=== PATIENT | male | born 1990 | race Caucasian/White ===

== ENCOUNTER 2019-12-29 18:51 | Emergency (ER) | payer BC, MEDICAID ==
[~2019-12-29] VITALS: Ht 167.6 cm; Wt 99.8 kg
[2019-12-29 18:56] VITALS: BP 144/78
--- NOTE | 2019-12-29 19:05 | NUR ---
AMB TO 8
--- NOTE | 2019-12-29 19:38 | NUR ---
PT TO CT VIA WHEELCHAIR
--- NOTE | 2019-12-29 19:45 | NUR ---
LAB AT BEDSIDE
--- NOTE | 2019-12-29 19:48 | NUR ---
PT WAS DX WITH APPENDICITIS 2-3 YRS AGO AND OPTED NOT TO HAVE SURGERY, JUST TOOK ANTIBIOTICS. HE SAYS ITS HURTING IN THE SAME AREA. ACTUALLY STATES "DISCOMFORT" NOT PAIN BUT RATES IT 7/10. AREA TENDER UPON PALPATION. AFEBRILE, NO N/V/D. PT SITTING AT BEDSIDE NKA NO HX
[2019-12-29 19:57] LABS: BASOPHILS # (AUTO) 0.1 K/uL (0.00-0.22); BASOPHILS % (AUTO) 0.6 % (0.0-2.0); EOSINOPHILS # (AUTO) 0.1 K/uL (0-0.4); EOSINOPHILS % (AUTO) 0.6 % (0.0-4.0); HEMATOCRIT 45.5 % (36-52); HEMOGLOBIN 15.5 g/dL (12.0-18.0); LYMPHOCYTES % (AUTO) 26.7 % (20.5-51.1); MEAN CORPUSCULAR HEMOGLOBIN 31 pg (27-31); MEAN CORPUSCULAR HGB CONC 34 g/dL (33-37); MEAN CORPUSCULAR VOLUME 90.9 fL (80-94); MONOCYTES % (AUTO) 8.8 % (1.7-9.3); NEUTROPHILS # (AUTO) 7.3 K/uL (1.8-7.7); NEUTROPHILS % (AUTO) 63.3 % (42.2-75.2); PLATELET COUNT (AUTO) 231 K/uL (140-450); RED BLOOD CELL COUNT(AUTO) 5.01 MIL/uL (4.20-6.10); RED CELL DISTRIBUTION WIDTH 13.2 % (11.6-13.7); WHITE BLOOD COUNT (AUTO) 11.4 K/uL (4.8-10.8)
[2019-12-29 20:23] LABS: ALBUMIN 4.5 g/dL (3.4-5.0); ANION GAP 15.8 (8-16); CARBON DIOXIDE 25.7 mmol/L (21-32); CREATININE 1.5 mg/dL (0.6-1.3); POTASSIUM 4.5 mmol/L (3.5-5.1); TOTAL BILIRUBIN 1.1 mg/dL (0.0-1.0)
[2019-12-29 20:51] VITALS: BP 144/78
--- NOTE | 2019-12-29 20:51 | NUR ---
Patient discharged with v/s stable. Written and verbal after care instructions given and explained. Patient verbalized understanding. Ambulatory with steady gait. All questions addressed prior to discharge. Advised to follow up with PMD.
== END 2019-12-29 20:51 | disposition home or self-care (01) ==
LOC: MED 18:51
DX: R10.31 Right lower quadrant pain (principal); J45.909 Unspecified asthma, uncomplicated
CPT/HCPCS: 36415; 80053; 85025; 99284

== ENCOUNTER 2021-09-26 03:25 | Emergency (ER) | payer SELFPAY ==
[~2021-09-26] VITALS: Ht 167.6 cm; Wt 95.3 kg
[2021-09-26 03:30] VITALS: BP 119/78
--- NOTE | 2021-09-26 03:30 | NUR ---
TO BED AMBULATORY
--- NOTE | 2021-09-26 03:32 | NUR ---
Mary Kate barba in [facility] - 09/26/21 at 0332 by MARY PT OLIMPIA VIEYRA. TAKEN TO BED 9
--- NOTE | 2021-09-26 04:24 | NUR ---
31 Y/O MALE BIBS FROM HOME, C/O CP X2 DAYS. PT STATES HE HAS CONSISTENT 10/10 PRESSURE ON HIS LEFT CHEST X 2 DAYS THAT MAKES HIS LEFT ARM TINGLE. CMS INTACT. DENIES V/D, COUGH, FEVER, OR TINITUS. +NAUSEA, +SOB. UNLABORED BREATHING; AMBULATORY; A/OX4, GCS-15. PT SEATED IN BED WITH HOB RAISED, BED IN LOWEST POSITION, RAILS UP X2. HX: ANX NKDA
[2021-09-26] MEDS ORDERED: KETOROLAC 60 MG/2 ML VIAL IM ONE (04:30)
[2021-09-26] MEDS ORDERED: ATA25 PO (04:43)
[2021-09-26] MEDS ORDERED: IBUP-2213 PO (04:43)
[2021-09-26 04:50] VITALS: BP 119/78
--- NOTE | 2021-09-26 04:52 | NUR ---
Patient discharged with v/s stable. Written and verbal after care instructions given and explained. Patient alert, oriented and verbalized understanding of instructions. Ambulatory with steady gait. All questions addressed prior to discharge. ID band removed. Patient advised to follow up with PMD. Rx of ATARAX HCL AND IBUPROFEN given. Patient educated on indication of medication including possible reaction and side effects. Opportunity to ask questions provided and answered. A/OX4, VSS, AMBULATORY, UNLABORED BREATHING, AND CALM DEMEANOR.
== END 2021-09-26 04:52 | disposition home or self-care (01) ==
LOC: MED 03:25
DX: F41.9 Anxiety disorder, unspecified (principal); R07.89 Other chest pain; R11.0 Nausea; R06.02 Shortness of breath; F17.200 Nicotine dependence, unspecified, uncomplicated; J45.909 Unspecified asthma, uncomplicated
CPT/HCPCS: 93005; 96372; 99283; J1885

== ENCOUNTER 2023-12-05 20:52 | Emergency (ER) | payer MEDICAID ==
[~2023-12-05] VITALS: Ht 167.6 cm; Wt 90.3 kg
[~2023-12-05 20:52] MED LIST: ATA25 PO; IBUP-2213 PO
[2023-12-05 21:01] VITALS: BP 121/70; PULSE 75; RESP 16; TEMP 98.1; O2SAT 98
[2023-12-05 22:05] LABS: APPEARANCE,URINE CLEAR (CLEAR); BILIRUBIN,URINE NEGATIVE (NEGATIVE); BLOOD, URINE NEGATIVE (NEGATIVE); COLOR,URINE YELLOW (YELLOW); LEUKOCYTE ESTERASE ,URINE NEGATIVE (NEGATIVE); NITRITE, URINE NEGATIVE (NEGATIVE); PROTEIN,URINE NEGATIVE (NEGATIVE); UGLUCOSE NEGATIVE (NEGATIVE)
[2023-12-05] MEDS ORDERED: MIRABULK PO (22:17)
== END 2023-12-05 22:41 | disposition home or self-care (01) ==
LOC: MED 20:52
DX: K59.00 Constipation, unspecified (principal); J45.909 Unspecified asthma, uncomplicated; Z79.1 Long term (current) use of non-steroidal anti-inflammatories (NSAID); Z79.899 Other long term (current) drug therapy
CPT/HCPCS: 81003; 99283